=== PATIENT | female | born 1985 | race Hispanic/Latino ===

== ENCOUNTER 2017-12-24 00:40 | Observation (INO) | payer OTHER, SELFPAY ==
[2017-12-24] MEDS ORDERED: Morphine 4 MG/ML VIAL ONE (01:34)
--- NOTE | 2017-12-24 03:13 | HP ---
REASON CHIEF COMPLAINT: Abdominal pain. HISTORY OF PRESENT ILLNESS: Ms. Pedersen is a 32-year-old woman with known gallstones diagnosed 2 yea rs ago during her last . After her , she had a hysterectomy for fibroids with an i ncidental appendectomy due to adhesions. Postoperatively, she had problems with wound dehiscence, wh ich was treated with a wound VAC. She then developed a ventral incisional hernia, which was treated with an open repair with mesh. She has not really had any problems from her gallstones since her pre gnancy, but today had sudden onset of severe right upper quadrant pain and nausea similar to previous episodes. She came in to her local emergency room and was found to have gallstones and wall thicken ing and a positive sonographic Pichardo sign on ultrasound as well as a 9-mm common bile duct. Her AST and ALT were mildly elevated. Her lipase was negative. Her white count was normal. Her pain was n ot able to be controlled and there was no surgical availability at her local hospital so she was [place] sferred here for further management. She states that her pain is somewhat better since receiving preeti n medications, but she is still hurting. PAST MEDICAL HISTORY: None. PAST SURGICAL HISTORY: As previously stated. FAMILY HISTORY: Hypertension, coronary artery disease, and diabetes in her father. Her sister of a massive stroke of unknown etiology. SOCIAL HISTORY: She does not smoke, drink, or use illicit drugs. REVIEW OF SYSTEMS: Ten-system review of systems is negative except per HPI. PHYSICAL EXAMINATION: VITAL SIGNS: Blood pressure 154/100, heart rate 81, 98.7 temperature, respirations 16, 95% saturated on room air. GENERAL: Reveals a pleasant woman, in no acute distress. She is not jaundiced or icteric in appeara nce. She is not flushed or toxic. HEENT: Unremarkable. NECK: Supple without lymphadenopathy or thyroid nodules. HEART: Regular in its rate and rhythm without murmurs, rubs, or gallops. LUNGS: Clear to auscultation bilaterally. She does not exhibit pain with deep inspiration. ABDOMEN: Soft and nondistended. She is moderately tender to palpation in the right upper quadrant, but does not exhibit rigidity, rebound, or guarding. No palpable masses or hernias. Healed midline incision. EXTREMITIES: Warm and well perfused without edema. NEUROLOGIC: No focal deficits. PSYCHIATRIC: Alert, oriented, and appropriate. LABORATORY DATA: White count is normal. Lipase is normal. Bilirubin is normal, but AST and ALT are mildly elevated as is alkaline phosphatase. Electrolytes are unremarkable and test is neg ative. ASSESSMENT: Cholelithiasis, possible cholecystitis or choledocholithiasis. PLAN: I have recommended laparoscopic cholecystectomy. She may need an open cholecystectomy. She h as significant adhesions from her previous surgeries, but we would at least attempt a laparoscopic ap proach. Inherent risks of the surgery include but are not limited to bleeding, infection, risks of a nesthesia, damage to nearby structures including bowel, liver and bile duct, need for other procedure s or ERCP. I have recommended an intraoperative cholangiogram as well due to her dilated bile duct a nd elevated LFTs. Repeat labs for the morning are ordered. All of her questions were answered. She is in agreement with the plan. We will maintain her on antibiotics perioperatively.
[2017-12-24] MEDS ORDERED: Morphine 4 MG/ML VIAL SLOW IVP PRN ×2 (04:01→11:15)
[2017-12-24] MEDS ORDERED: Ondansetron HCl/PF 4 MG/2 ML Vial IVP PRN ×3 (04:01→14:12)
[2017-12-24] MEDS ORDERED: Ondansetron ODT 4 MG TAB SL PRN (04:01)
[2017-12-24] MEDS: Sodium Chloride 0.9% 1,000 ML IV SCH ×3 (04:11→18:17)
[2017-12-24 04:44] VITALS: BMI 41.9
[2017-12-24] MEDS: Morphine 4 MG/ML VIAL SLOW IVP PRN ×4 (05:44→22:27)
[2017-12-24] MEDS ORDERED: Bupivacaine/Epinephrine 0.25% 30 ML VIAL ONE (07:14)
[2017-12-24] MEDS ORDERED: Iothalamate Meglumine 60% 50 ML VIAL FS ONE (07:14)
[2017-12-24 08:26] LABS: #Eosinphils 0.1 thou/uL (0.0-0.7); #Lymphocytes 1.7 thou/uL (1.20-3.40); #Monocytes 0.4 thou/uL (0.11-0.59); #Neutrophils 3.6 thou/uL (1.40-6.50); %Basophils 0.6 % (0.0-1.0); %Eosinophils 2.5 % (0.0-10.0); %Lymphocytes 29.1 % (21.0-51.0); %Monocytes 6.1 % (0.0-10.0); %Neutrophils 61.7 % (42.0-75.0); Hemoglobin 12.4 g/dL (12.0-16.0); Mean Corpuscular HGB CONC 33.9 g/dL (32.0-36.0); Mean Corpuscular Hemoglobin 30.8 pg (27.0-31.0); Mean Corpuscular Volume 90.8 fl (81.0-99.0); Mean Platelet Volume 6.3 fL (7.4-10.4); Platelet Count 258 thou/uL (130-400); RBC Distribution Width 12.1 % (11.5-14.5); Red Blood Cell (RBC) Count 4.04 mill/uL (4.20-5.40); White Blood Cell (WBC) Count 5.8 thou/uL (4.8-10.8)
[2017-12-24 08:51] LABS: ALT (SGPT) 210 U/L (8-55); AST (SGOT) 173 U/L (5-34); Albumin 3.9 g/dL (3.5-5.0); Alkaline Phosphatase 148 U/L (40-150); Anion Gap 10 mmol/L (10-20); BUN (Urea Nitrogen) 10 mg/dL (7.0-18.7); Bilirubin, Total 0.6 mg/dL (0.2-1.2); Calc. Creatinine Clearance 197 mL/min (70-130); Calcium 8.5 mg/dL (7.8-10.44); Carbon Dioxide 24 mmol/L (22-29); Chloride 107 mmol/L (98-107); Estimated GFR-MDRD Greater than 90; Globulin 2.5 g/dL (2.4-3.5); Glucose 97 mg/dL (70-105); Lipase 12 U/L (8-78); Potassium 4.3 mmol/L (3.5-5.1); Protein, Total 6.4 g/dL (6.0-8.3); Sodium 137 mmol/L (136-145)
[2017-12-24] MEDS ORDERED: Acetaminophen 1,000 MG in Premix Bag 1 BAG IVPB PRN (11:08)
--- NOTE | 2017-12-24 12:17 | PDOC.GSPN ---
Surgery Progress Note: Subj - Subjective Patient reports: no new complaints, still having pain (Morphine helps with abdominal pain but hasn't helped with headache) Narrative: LFTs are still mildly elevated not significantly changed from lab values from [place]. Lipase is still normal. Laparoscopic cholecystectomy with IOC is planned for later today. PARQ discussion was held and all of the patient's questions were answered Surgery Progress Note: Obj - Vital signs Vital signs: Vital Signs - Most Recent Temp Pulse Resp BP Pulse Ox 98.7 F 65 16 108/72 95 12/24/17 11:50 12/24/17 11:50 12/24/17 11:50 12/24/17 11:50 12/24/17 11:50 Surgery Progress Note: Results - Labs Result Diagrams: 12/24/17 08:16 12/24/17 08:16 Lab results: Laboratory Results - last 24 hr 12/24/17 12/24/17 08:16 08:16 WBC 5.8 RBC 4.04 L Hgb 12.4 Hct 36.7 MCV 90.8 MCH 30.8 MCHC 33.9 RDW 12.1 Plt Count 258 MPV 6.3 L Neutrophils % 61.7 Lymphocytes % 29.1 Monocytes % 6.1 Eosinophils % 2.5 Basophils % 0.6 Neutrophils # 3.6 Lymphocytes # 1.7 Monocytes # 0.4 Eosinophils # 0.1 Basophils # 0.0 Sodium 137 Potassium 4.3 Chloride 107 Carbon Dioxide 24 Anion Gap 10 BUN 10 Creatinine 0.66 Estimated GFR (MDRD) Greater than 90 Glucose 97 Calcium 8.5 Total Bilirubin 0.6 AST 173 H ALT 210 H Alkaline Phosphatase 148 Serum Total Protein 6.4 Albumin 3.9 Globulin 2.5 Albumin/Globulin Ratio 1.6 Lipase 12
[2017-12-24] MEDS ORDERED: Promethazine 25 MG TAB ONE (13:46)
[2017-12-24] MEDS ORDERED: Promethazine HCl 25 MG/ML VIAL ONE (13:47)
[2017-12-24] MEDS: Meropenem 1 GM in Sodium Chloride 0.9% 100 ML IVPB SCH ×2 (14:09→22:26)
[2017-12-24] MEDS ORDERED: Promethazine HCl 25 MG/ML VIAL SLOW IVP PRN (14:12)
[2017-12-24] MEDS ORDERED: Promethazine HCl 25 MG/ML VIAL IM PRN (14:12)
[2017-12-24] MEDS ORDERED: Fentanyl 100 MCG/2 ML VIAL ONE ×2 (14:21→17:14)
[2017-12-24] MEDS ORDERED: PROPOFOL 200 MG/20 ML VIAL ONE (15:33)
[2017-12-24] MEDS ORDERED: Ketorolac Tromethamine 30 MG/ML VIAL ONE (15:33)
[2017-12-24] MEDS ORDERED: Lidocaine 1% PF 5 ML VIAL ONE (15:33)
[2017-12-24] MEDS ORDERED: Dexamethasone 20 MG/5 ML VIAL ONE (15:33)
[2017-12-24] MEDS ORDERED: Succinylcholine Chloride 20 MG/ML 10 ml SYRINGE FS ONE (15:33)
[2017-12-24] MEDS ORDERED: Ondansetron HCl/PF 4 MG/2 ML Vial ONE (15:33)
[2017-12-24] MEDS ORDERED: Meperidine HCl/PF 25 MG/ML VIAL ONE (17:18)
[2017-12-24] MEDS ORDERED: HYDROcodone/Acetaminophen 7.5/325 mg Tablet PO PRN (18:44)
[2017-12-24] MEDS ORDERED: Clopidogrel Bisulfate 75 MG TAB ONE (19:23)
[2017-12-24] MEDS: HYDROcodone/Acetaminophen 7.5/325 mg Tablet PO PRN (20:09)
--- NOTE | 2017-12-24 21:30 | PDOC.OP ---
Operative Note - Operative Note Operative Note: PROCEDURE: Laparoscopic cholecystectomy SURGEON: Francisco Orourke M.D. DATE OF PROCEDURE: 12/24/2017 PREOPERATIVE DIAGNOSIS: Cholelithiasis and cholecystitis POSTOPERATIVE DIAGNOSIS: Cholelithiasis and cholecystitis HISTORY: Patient with right upper quadrant tenderness and nausea and known gallstones. LFTs were mildly elevated and pain was intractable so a recommendation was made to proceed with laparoscopic cholecystectomy and intraoperative cholangiogram. FINDINGS: Thick-walled gallbladder consistent with chronic cholecystitis. Cystic ducts avulsed from the gallbladder so cholangiogram was unable to be performed. Extensive omental adhesions to midline mesh. PROCEDURE IN DETAIL: After informed consent was obtained and appropriate preoperative antibiotics were administered, the patient was taken to the operating room and placed in the supine position and general endotracheal anesthesia was administered. The stomach was decompressed with an OG tube and the abdomen was prepped and draped in standard sterile fashion. Local anesthesia was infused to the skin and subcutaneous tissues at the right subcostal level. A transverse skin incision was made. The fascia was elevated and a Veress needle was placed into the abdominal cavity without difficulty. Opening pressure was less than 5 but rapidly silvia. The Veress needle was withdrawn and a Nimrod port advanced under direct vision into the abdominal cvity. Carbon dioxide gas easily insufflated to an intra-abdominal pressure of 15, which the patient tolerated well. The abdominal cavity was carefully examined. There was no evidence of Veress needle or of trocar injury, but there were extensive omental adhesions to the upper midline abdomen. Additional dissecting ports were placed in the right lateral abdomen under direct laparoscopic vision and the omental adhesions taken down until the edge of the mesh was identified. The mesh was densely adherent to the omentum and the decision was made to place. Ports outside the margins of the mesh rather than continue to take down the omentum.. Local anesthesia was infused to the skin and subcutaneous tissues at the epigastric and right lower abdominal sites and trocars were placed under direct vision of the laparoscope. The fundus of the gallbladder was grasped and retracted superiorly. The infundibulum was grasped and retracted laterally. The serosa was extremely thickened consistent with chronic cholecystitis and was divided to allow lateral retraction of the infundibulum. During this process some filmy tissues inferior to the gallbladder tore on further dissection in this area at the cystic duct could not be identified and it was felt that this had likely avulsed from the gallbladder. The area of the tissues which is separate from the gallbladder was then carefully examined and 2 structures were identified which it was felt might represent the cystic duct. These were clipped and attention turned to dissection of the gallbladder. The cystic artery was identified clipped and divided. The gallbladder was then dissected free of the gallbladder bed using hook electrocautery. During this process the gallbladder did tear and multiple stones and bile were spilled but were able to be suctioned out. Prior to complete removal of the gallbladder from the gallbladder bed, the area of the cystic duct and artery stumps was examined. The clips were in good position completely across these structures and there was no bleeding and no leakage of bile. The area was again carefully examined and no other structures were noted that were felt to represent the cystic duct. The gallbladder was then placed into an EndoCatch bag and drawn out through the epigastric incision. The epigastric trocar was replaced and the operative site easily irrigated to clear. There was no significant bleeding or spillage of bile. The epigastric trocar was removed and a GraNee needle used to reapproximate the fascia with 0 Vicryl suture in a [id number] manner with excellent technical result. The suture was not tied down however. A trocar was placed back through the epigastric site and a DENNY drain placed through the epigastric trocar and drawn out through the right lateral abdominal sites. The end of the drain was placed to the gallbladder fossa and secured to the skin with nylon suture. The camera was then moved to the epigastric site and the right sided abdominal trochars removed under direct vision and hemostasis verified. Carbon dioxide gas was allowed to desufflate through the epigastric trocar which was then removed. The skin incisions were closed with 4-0 subcuticular Monocryl sutures and Dermabond dressings were placed. The patient was extubated and taken to the recovery room in good condition, with plans for a postoperative MRCP. COMPLICATIONS: Avulsion of the cystic duct from the gallbladder. ESTIMATED BLOOD LOSS: Minimal. SPECIMEN : Gallbladder and contents.
[2017-12-25] MEDS: Morphine 4 MG/ML VIAL SLOW IVP PRN ×5 (04:14→22:20)
[2017-12-25 04:53] LABS: #Lymphocytes 1.2 thou/uL (1.20-3.40); #Monocytes 0.5 thou/uL (0.11-0.59); #Neutrophils 7.9 thou/uL (1.40-6.50); %Basophils 0.1 % (0.0-1.0); %Eosinophils 0.2 % (0.0-10.0); %Lymphocytes 12.9 % (21.0-51.0); %Monocytes 4.7 % (0.0-10.0); %Neutrophils 82.1 % (42.0-75.0); Hemoglobin 12.8 g/dL (12.0-16.0); Mean Corpuscular HGB CONC 33.9 g/dL (32.0-36.0); Mean Corpuscular Hemoglobin 31.4 pg (27.0-31.0); Mean Corpuscular Volume 92.6 fl (81.0-99.0); Platelet Count 294 thou/uL (130-400); Red Blood Cell (RBC) Count 4.09 mill/uL (4.20-5.40); White Blood Cell (WBC) Count 9.6 thou/uL (4.8-10.8)
[2017-12-25 05:08] LABS: ALT (SGPT) 173 U/L (8-55); AST (SGOT) 74 U/L (5-34); Alkaline Phosphatase 127 U/L (40-150); Anion Gap 5 mmol/L (10-20); BUN (Urea Nitrogen) 4 mg/dL (7.0-18.7); Bilirubin, Total 0.4 mg/dL (0.2-1.2); Calc. Creatinine Clearance 203 mL/min (70-130); Carbon Dioxide 29 mmol/L (22-29); Chloride 106 mmol/L (98-107); Estimated GFR-MDRD Greater than 90; Globulin 2.7 g/dL (2.4-3.5); Glucose 133 mg/dL (70-105); Potassium 4.1 mmol/L (3.5-5.1); Protein, Total 6.7 g/dL (6.0-8.3); Sodium 136 mmol/L (136-145)
[2017-12-25] MEDS: HYDROcodone/Acetaminophen 7.5/325 mg Tablet PO PRN (06:04)
[2017-12-25] MEDS: Meropenem 1 GM in Sodium Chloride 0.9% 100 ML IVPB SCH ×2 (06:05→13:11)
[2017-12-25] MEDS: Sodium Chloride 0.9% 1,000 ML IV SCH ×3 (08:07→22:20)
[2017-12-25] MEDS ORDERED: Lorazepam 2 MG/ML VIAL SLOW IVP SCH (10:15)
[2017-12-25] MEDS ORDERED: Ketorolac Tromethamine 30 MG/ML VIAL IVP PRN (10:15)
--- NOTE | 2017-12-25 15:39 | PRG ---
DATE OF SERVICE: 12/25/2017 SUBJECTIVE: Ms. Pedersen is doing okay today. She is still having a lot of pain. She told me today that when she was , she was on massive doses of narcotics and even a fentanyl drip at one poi nt due to pain from her fibroid, so narcotics do not seem to help very much or for very long. OBJECTIVE: She has been afebrile. Her vital signs are good. Her DENNY only had about 70 mL yesterday and is serosanguineous without any bilious staining. AST and ALT are both down a bit to 74 and 173. Her incisions are clean and dry. She is diffusely tender, but ecchymosis is incisional. ASSESSMENT: Status post laparoscopic cholecystectomy with avulsion of the cystic duct from the gallb ladder. This appears to be adequately clipped. There does not seem to be any bile leaking from her DENNY, but we are still awaiting her MRCP to evaluate for bile leak and also for choledocholithiasis sin ce her LFTs were elevated. Her LFTs are coming down somewhat, so this may have been primarily due to her fatty liver and cholecystitis. If her MRCP is normal, then we will plan to remove the DENNY and di scharge her home, but if it is abnormal, then we will get Dr. Watts involved for ERCP and stenting.
--- NOTE | 2017-12-25 18:58 | MRI ---
MRI OF THE ABDOMEN WITHOUT CONTRAST MRCP: Comparison: CT abdomen/pelvis 10-08-16, gallbladder ultrasound 11-22-15. History: Elevated LFTs status post cholecystectomy. Technique: Multiplanar, multisequence MRI images were obtained of the abdomen without contrast. MRCP images were performed. FINDINGS: The gallbladder has been removed and there are stranding changes in the gallbladder fossa from recent surgery. The common bile duct measures 8-9 mm in greatest dimension. No filling defects are seen wit hin the common bile duct. No significant intrahepatic ductal dilatation is seen. The common bile duct tapers to a normal caliber at the antrum of the bladder. No focal liver lesions are seen. There is mild loss of signal in the liver on out of phase images con sistent with diffuse fatty infiltration. The kidneys, adrenal glands, spleen, and pancreas are unrema rkable. IMPRESSION: 1. Status post cholecystectomy with mild enlargement of the common bile duct. There is likely reservo ir effect from cholecystectomy. 2. Mild fatty infiltration of the liver. POS: [facility]
[2017-12-25] MEDS ORDERED: Famotidine/PF 20 mg/2ml Vial SLOW IVP SCH (21:00)
[2017-12-25] MEDS: Famotidine 40 MG/4 ML VIAL SLOW IVP SCH (22:19)
[2017-12-25] MEDS: MEROPENEM 1 GM/50 ML 1 GM in Premix Bag 1 BAG IVPB SCH (22:20)
[2017-12-26] MEDS: MEROPENEM 1 GM/50 ML 1 GM in Premix Bag 1 BAG IVPB SCH (05:52)
[2017-12-26] MEDS: Morphine 4 MG/ML VIAL SLOW IVP PRN (08:30)
[2017-12-26] MEDS: Famotidine 40 MG/4 ML VIAL SLOW IVP SCH (08:30)
--- NOTE | 2017-12-26 11:09 | NM ---
HIDA SCAN: Comparison: MRCP, 12-25-17; CT abdomen/pelvis 10-08-16. History: Status post cholecystectomy with right upper quadrant abdominal pain. Evaluate for leak. Technique: A hepatobiliary scan was performed after administration of 4.9 mCi Technetium 99M Mebrofen in. FINDINGS: Prompt uptake of radiopharmaceutical by the liver is seen. Biliary activity is seen within 10 minutes . Bowel activity is seen within 15 minutes. No accumulation of radiopharmaceutical is seen outside of the biliary tree or bowel to suggest a leak. The gallbladder is not visualized as it has been remove d. IMPRESSION: No evidence of bowel leak. POS: [facility]
[2017-12-26] MEDS: HYDROcodone/Acetaminophen 7.5/325 mg Tablet PO PRN (11:49)
[2017-12-26 12:13] VITALS: BP 147/96; TEMP 99.2
== END 2017-12-26 14:01 | disposition home or self-care (01) ==
LOC: ERS 00:40 → SURG B 02:33
PROVIDERS: ADMIT Surgery; ATTEND Surgery
PROC: 0FT44ZZ Resection of Gallbladder, Percutaneous Endoscopic Approach (ICD-10-PCS; principal; 2017-12-26)
DX: K80.10 Calculus of gallbladder with chronic cholecystitis without obstruction (principal); Z88.8 Allergy status to other drugs, medicaments and biological substances; Z91.041 Radiographic dye allergy status; Z90.49 Acquired absence of other specified parts of digestive tract; Z90.710 Acquired absence of both cervix and uterus; Z90.79 Acquired absence of other genital organ(s); Z90.89 Acquired absence of other organs; Z98.890 Other specified postprocedural states
CPT/HCPCS: 36415; 74181; 78226; 80053; 83690; 85025; 88304; 96361; 96365; 96366; 96374; 96375; 96376; A9537; G0378; J0131; J1100; J1885; J2001; J2060; J2175; J2185; J2270; J2405; J2550; J2704; J3010; J7050; Q9961; S0028

== ENCOUNTER 2018-06-19 10:37 | Emergency (ER) | payer SELFPAY | END 2018-06-19 12:18 | disposition home or self-care (01) | LOC: ERS 10:37 | DX: J06.9 Acute upper respiratory infection, unspecified (principal); F32.9 Major depressive disorder, single episode, unspecified | CPT/HCPCS: 87804; 99283 ==

== ENCOUNTER 2018-12-25 16:53 | Emergency (ER) | payer SELFPAY ==
[2018-12-25 17:52] LABS: #Eosinphils 0.2 thou/uL (0.0-0.7); #Lymphocytes 2.8 thou/uL (1.20-3.40); #Monocytes 0.4 thou/uL (0.11-0.59); %Basophils 0.2 % (0.0-1.0); %Eosinophils 1.5 % (0.0-10.0); %Lymphocytes 26.4 % (21.0-51.0); %Monocytes 4.3 % (0.0-10.0); %Neutrophils 67.6 % (42.0-75.0); Mean Corpuscular HGB CONC 33.9 g/dL (32.0-36.0); Mean Corpuscular Hemoglobin 30.4 pg (27.0-31.0); Mean Corpuscular Volume 89.7 fL (78.0-98.0); Mean Platelet Volume 7.4 fL (7.4-10.4); Platelet Count 325 thou/uL (130-400); RBC Distribution Width 11.7 % (11.5-14.5); Red Blood Cell (RBC) Count 4.29 mill/uL (4.20-5.40); White Blood Cell (WBC) Count 10.4 thou/uL (4.8-10.8)
--- NOTE | 2018-12-25 18:04 | RAD ---
EXAM: Chest PA and lateral: HISTORY: Chest pain, headache, upper back pain, history of hypertension COMPARISON: 11/17/2012 FINDINGS: Monitor leads overlie the chest. Heart size is normal. The lungs are clear. No confluent pneumonia, overt edema, pleural effusion, or other acute process. IMPRESSION: No significant acute intrathoracic disease.
[2018-12-25 18:16] LABS: ALT (SGPT) 40 U/L (8-55); AST (SGOT) 27 U/L (5-34); Albumin 4.5 g/dL (3.5-5.0); Alkaline Phosphatase 130 U/L (40-150); Anion Gap 15 mmol/L (10-20); BUN (Urea Nitrogen) 13 mg/dL (7.0-18.7); Bilirubin, Total 0.5 mg/dL (0.2-1.2); CK (CPK) 90 U/L (29-168); Calc. Creatinine Clearance 0 mL/min (70-130); Calcium 9.9 mg/dL (7.8-10.44); Carbon Dioxide 29 mmol/L (22-29); Chloride 98 mmol/L (98-107); Estimated GFR-MDRD Greater than 90; Globulin 3.3 g/dL (2.4-3.5); Glucose 101 mg/dL (70-105); Potassium 3.2 mmol/L (3.5-5.1); Protein, Total 7.8 g/dL (6.0-8.3); Sodium 139 mmol/L (136-145)
== END 2018-12-25 19:14 | disposition home or self-care (01) ==
LOC: ERS 16:53
DX: R07.9 Chest pain, unspecified (principal); R51 Headache; E11.9 Type 2 diabetes mellitus without complications; I10 Essential (primary) hypertension; E78.5 Hyperlipidemia, unspecified; E03.9 Hypothyroidism, unspecified; F41.9 Anxiety disorder, unspecified
CPT/HCPCS: 71046; 80053; 82550; 84484; 85025; 93005; 94760

== ENCOUNTER 2020-08-01 14:31 | Emergency (ER) | payer SELFPAY ==
[2020-08-01 21:46] LABS: SARS-CoV-2 MS2 Positive; SARS-CoV-2 N Gene Negative; SARS-CoV-2 S Gene Negative; SARS-CoV-2 by NAA Not Detected (NotDetected); SARS-CoV-2 orf1ab Negative
== END 2020-08-01 15:17 | disposition home or self-care (01) ==
LOC: ERS 14:31
DX: R05 Cough (principal); Z20.828 Contact with and (suspected) exposure to other viral communicable diseases; I10 Essential (primary) hypertension; E78.5 Hyperlipidemia, unspecified; E11.9 Type 2 diabetes mellitus without complications; E03.9 Hypothyroidism, unspecified; F41.9 Anxiety disorder, unspecified; Z79.899 Other long term (current) drug therapy
CPT/HCPCS: 87635; 99283; U0003

== ENCOUNTER 2021-01-03 00:18 | Observation (INO) | payer MEDICAID, SELFPAY ==
[2021-01-03 00:53] LABS: Actual Bicarbonate (HCO3v) 29 mEq/L (22-28); Analyzer IN Cardio ER; Base Excess 3.4 mEq/L (-2.0 to +3.0); pH (venous) 7.41 (7.32-7.43)
[2021-01-03 00:54] LABS: Calcium, Ionized (venous) 1.12 mmol/L (1.16-1.32); Chloride (VBG) 91 mmol/L (98-106); Hemoglobin (Hb) 15.3 g/dL (11.7-15.5); Potassium (VBG) 3.07 mmol/L (3.70-5.30); Sodium 134.2 mmol/L (133-146)
[2021-01-03 01:09] LABS: ALT (SGPT) 67 U/L (8-55); AST (SGOT) 45 U/L (5-34); Albumin 4.7 g/dL (3.5-5.0); Alkaline Phosphatase 221 U/L (40-110); Anion Gap 16 mmol/L (10-20); BUN (Urea Nitrogen) 7 mg/dL (7.0-18.7); Bilirubin, Total 0.7 mg/dL (0.2-1.2); Calc. Creatinine Clearance 0 mL/min (70-130); Calcium 10.1 mg/dL (7.8-10.44); Carbon Dioxide 29 mmol/L (22-29); Chloride 91 mmol/L (98-107); Globulin 3.1 g/dL (2.4-3.5); Glucose 450 mg/dL (70-105); Potassium 3.2 mmol/L (3.5-5.1); Protein, Total 7.8 g/dL (6.0-8.3); Sodium 133 mmol/L (136-145)
[2021-01-03] MEDS ORDERED: NS 0.9% w/ 20 MEQ KCL 1,000 ML ONE (01:16)
[2021-01-03] MEDS ORDERED: Insulin Regular 300 UNITS/3 ML VIAL ONE (02:11)
[2021-01-03] MEDS ORDERED: Metoclopramide HCl 10 MG/2 ML VIAL ONE (02:48)
[2021-01-03] MEDS ORDERED: Metoclopramide 10 MG/10 ML UDCUP ONE (02:48)
[2021-01-03 02:51] LABS: Phosphorus 1.9 mg/dL (2.3-4.7)
[2021-01-03] MEDS ORDERED: Dextrose 50% Abboject 50 ML SYRINGE SLOW IVP PRN (03:18)
[2021-01-03] MEDS ORDERED: Dextrose 5% in Water 1,000 ML IV PRN (03:18)
[2021-01-03] MEDS ORDERED: Potassium Chloride 20 MEQ TAB PO SCH ×2 (03:30→05:30)
[2021-01-03] MEDS ORDERED: Ondansetron PF 4 MG/2 ML Vial IVP PRN (03:45)
[2021-01-03] MEDS ORDERED: Ondansetron ODT 4 MG TAB PO PRN (03:45)
[2021-01-03] MEDS ORDERED: Bisacodyl 5 MG TAB PO PRN (03:45)
[2021-01-03] MEDS ORDERED: Senokot S 8.6-50 MG TAB PO PRN (03:45)
[2021-01-03] MEDS ORDERED: Potassium Chloride 20 MEQ in Premix Bag 1 BAG IVPB SCH (04:00)
[2021-01-03 04:52] VITALS: BMI 42.8
[2021-01-03] MEDS: HumaLOG 300 UNITS/3 ML VIAL SC PRN ×3 (06:42→17:15)
[2021-01-03 07:29] LABS: Bilirubin Negative (Negative); Blood, Urine Negative (Negative); Clarity Clear (Clear); Glucose, Urine (Dipstick) Greater than 1000 mg/dL (Negative); Ketone, Urine 40 mg/dL (Negative); Leukocyte Negative Leu/uL (Negative); Nitrite Negative (Negative); Protein, Urine (Dipstick) 20 mg/dL (Neg-Trace); RBC/HPF 0-3 HPF (0-3); Specific Gravity, Urine 1.042 (1.002-1.036); Squamous Epithelial 0-3 HPF (0-3); Urobilinogen Normal mg/dL (Less than 2); pH, Urine 5.5 (5.0-9.0)
[2021-01-03 07:30] LABS: Bacteria/HPF 1+ HPF (None Seen)
[2021-01-03 08:04] LABS: #Eosinphils 0.2 thou/uL (0.0-0.7); #Lymphocytes 2.4 thou/uL (1.20-3.40); #Monocytes 0.3 thou/uL (0.11-0.59); #Neutrophils 3.4 thou/uL (1.40-6.50); %Basophils 0.8 % (0.0-1.0); %Eosinophils 2.5 % (0.0-10.0); %Lymphocytes 38.1 % (21.0-51.0); %Monocytes 4.4 % (0.0-10.0); %Neutrophils 54.1 % (42.0-75.0); Hemoglobin 12.8 g/dL (12.0-16.0); Mean Corpuscular HGB CONC 34.4 g/dL (32.0-36.0); Mean Corpuscular Hemoglobin 31.1 pg (27.0-31.0); Mean Corpuscular Volume 90.4 fL (78.0-98.0); Mean Platelet Volume 7.8 fL (7.4-10.4); Platelet Count 246 thou/uL (130-400); RBC Distribution Width 11.6 % (11.5-14.5); Red Blood Cell (RBC) Count 4.11 mill/uL (4.20-5.40); White Blood Cell (WBC) Count 6.2 thou/uL (4.8-10.8)
[2021-01-03 08:16] LABS: Anion Gap 12 mmol/L (10-20); BUN (Urea Nitrogen) 5 mg/dL (7.0-18.7); Calc. Creatinine Clearance 154 mL/min (70-130); Calcium 8.7 mg/dL (7.8-10.44); Carbon Dioxide 29 mmol/L (22-29); Cardiac Risk 9.3 (Less than 4.5); Chloride 97 mmol/L (98-107); Cholesterol 195 mg/dl (< 200 Desired); Glucose 373 mg/dL (70-105); HDL Cholesterol 21 mg/dL (>60 Neg Risk); Potassium 3.4 mmol/L (3.5-5.1); Sodium 135 mmol/L (136-145); Triglycerides 451 mg/dL (Less than 150)
[2021-01-03 08:34] LABS: Hemoglobin A1c 11.8 % (4.0-6.0)
[2021-01-03 08:45] LABS: HBCM Index 0.07 S/CO (0-0.79); HBSAg Index 0.17 S/CO (0-0.99); Hep A IgM AB Non-Reactive (NonReactive); Hep A IgM S/CO 0.13 S/CO (0-0.79); Hep B Surf Ag Non-Reactive S/CO (NonReactive); Hep C IgG Ab Non-Reactive (NonReactive); Hep C Index 0.07 S/CO (0-0.79); Hepatitis B Core IgM Abs Non-Reactive (NonReactive)
[2021-01-03] MEDS ORDERED: Lantus 1000 UNITS/10 ML VIAL SC SCH (09:30)
[2021-01-03] MEDS: NS 0.9% w/ 20 MEQ KCL 1,000 ML/1,000 ML BAG IV SCH ×2 (10:29→22:12)
[2021-01-03] MEDS: Potassium Chloride 10 MEQ TAB PO SCH (10:29)
[2021-01-03 11:39] LABS: SARS-CoV-2 NAA Rapid Test Not Detected (NotDetected)
[2021-01-03] MEDS: Metoclopramide 10 MG/10 ML UDCUP PO SCH ×3 (11:42→22:06)
[2021-01-03] MEDS ORDERED: Amitriptyline HCl 25 MG TAB PO SCH (21:00)
[2021-01-03] MEDS: Mirtazapine 30 MG Soltab PO SCH (22:07)
[2021-01-04] MEDS: Insulin Regular 300 UNITS/3 ML VIAL SC PRN ×2 (00:22→21:01)
[2021-01-04 04:48] LABS: #Eosinphils 0.2 thou/uL (0.0-0.7); #Lymphocytes 2.6 thou/uL (1.20-3.40); #Monocytes 0.3 thou/uL (0.11-0.59); #Neutrophils 2.6 thou/uL (1.40-6.50); %Basophils 0.2 % (0.0-1.0); %Lymphocytes 46.3 % (21.0-51.0); %Monocytes 5.2 % (0.0-10.0); %Neutrophils 45.3 % (42.0-75.0); Hemoglobin 12.3 g/dL (12.0-16.0); Mean Corpuscular HGB CONC 32.7 g/dL (32.0-36.0); Mean Corpuscular Hemoglobin 30.3 pg (27.0-31.0); Mean Corpuscular Volume 92.6 fL (78.0-98.0); Mean Platelet Volume 8.4 fL (7.4-10.4); Platelet Count 193 thou/uL (130-400); RBC Distribution Width 11.8 % (11.5-14.5); Red Blood Cell (RBC) Count 4.05 mill/uL (4.20-5.40); White Blood Cell (WBC) Count 5.7 thou/uL (4.8-10.8)
[2021-01-04 05:11] LABS: Anion Gap 11 mmol/L (10-20); BUN (Urea Nitrogen) 8 mg/dL (7.0-18.7); Calc. Creatinine Clearance 161 mL/min (70-130); Calcium 8.6 mg/dL (7.8-10.44); Carbon Dioxide 25 mmol/L (22-29); Chloride 104 mmol/L (98-107); Glucose 455 mg/dL (70-105); Potassium 4.3 mmol/L (3.5-5.1); Sodium 136 mmol/L (136-145)
[2021-01-04] MEDS: HumaLOG 300 UNITS/3 ML VIAL SC PRN ×3 (06:28→17:09)
[2021-01-04] MEDS: Levothyroxine Sodium 100 MCG TAB PO SCH (06:33)
[2021-01-04] MEDS ORDERED: Lantus 1000 UNITS/10 ML VIAL SC SCH ×2 (09:00→21:00)
[2021-01-04] MEDS: NS 0.9% w/ 20 MEQ KCL 1,000 ML/1,000 ML BAG IV SCH ×3 (09:18→23:50)
[2021-01-04] MEDS: Polyethylene Glycol 3350 17 GM Packet PO SCH (09:20)
[2021-01-04] MEDS: Metoclopramide 10 MG/10 ML UDCUP PO SCH ×4 (09:20→20:52)
[2021-01-04] MEDS: Potassium Chloride 10 MEQ TAB PO SCH (09:20)
[2021-01-04] MEDS: Pantoprazole 40 MG GRANULES PACKET PO SCH (09:21)
[2021-01-04] MEDS: Venlafaxine HCl XR 75 MG CAP PO SCH (09:21)
[2021-01-04] MEDS: Senokot S 8.6-50 MG TAB PO SCH ×2 (09:21→20:53)
[2021-01-04] MEDS: Lantus 1000 UNITS/10 ML VIAL SC SCH (09:22)
[2021-01-04] MEDS: Acetaminophen 500 MG TAB PO PRN ×2 (11:59→17:09)
[2021-01-04] MEDS: metFORMIN 500 MG TAB PO SCH (17:09)
[2021-01-04] MEDS: Mirtazapine 30 MG Soltab PO SCH (20:53)
[2021-01-04] MEDS ORDERED: Zolpidem Tartrate 5 MG TAB PO SCH (23:00)
[2021-01-05] MEDS: Levothyroxine Sodium 100 MCG TAB PO SCH (06:09)
[2021-01-05] MEDS: Acetaminophen 500 MG TAB PO PRN ×2 (06:09→15:00)
[2021-01-05] MEDS: HumaLOG 300 UNITS/3 ML VIAL SC PRN ×2 (06:12→12:12)
[2021-01-05 06:58] LABS: Anion Gap 11 mmol/L (10-20); BUN (Urea Nitrogen) 6 mg/dL (7.0-18.7); Calc. Creatinine Clearance 196 mL/min (70-130); Calcium 7.9 mg/dL (7.8-10.44); Carbon Dioxide 23 mmol/L (22-29); Chloride 107 mmol/L (98-107); Glucose 283 mg/dL (70-105); Sodium 137 mmol/L (136-145)
[2021-01-05] MEDS: Metoclopramide 10 MG/10 ML UDCUP PO SCH ×2 (08:35→12:08)
[2021-01-05] MEDS: Senokot S 8.6-50 MG TAB PO SCH (08:35)
[2021-01-05] MEDS: Polyethylene Glycol 3350 17 GM Packet PO SCH (08:36)
[2021-01-05] MEDS: Potassium Chloride 10 MEQ TAB PO SCH (08:36)
[2021-01-05] MEDS: Pantoprazole 40 MG GRANULES PACKET PO SCH (08:36)
[2021-01-05] MEDS: metFORMIN 500 MG TAB PO SCH (08:36)
[2021-01-05] MEDS: Venlafaxine HCl XR 75 MG CAP PO SCH (08:36)
[2021-01-05] MEDS: Lantus 1000 UNITS/10 ML VIAL SC SCH (08:37)
[2021-01-05] MEDS: NS 0.9% w/ 20 MEQ KCL 1,000 ML/1,000 ML BAG IV SCH (11:14)
[2021-01-05 15:05] VITALS: BP 138/87; TEMP 98.1
[2021-01-05] MEDS ORDERED: Zolpidem Tartrate 5 MG TAB PO SCH (21:00)
== END 2021-01-05 16:23 | disposition home or self-care (01) ==
LOC: ERS 00:18 → 2NO 02:02 → T4-A 01-04 16:29
PROVIDERS: ADMIT Internal Medicine; ATTEND Family Medicine
DX: E11.65 Type 2 diabetes mellitus with hyperglycemia (principal); E11.00 Type 2 diabetes mellitus with hyperosmolarity without nonketotic hyperglycemic-hyperosmolar coma (NKHHC); E86.0 Dehydration; E87.6 Hypokalemia; R74.01 Elevation of levels of liver transaminase levels; I10 Essential (primary) hypertension; E78.5 Hyperlipidemia, unspecified; K21.9 Gastro-esophageal reflux disease without esophagitis; E03.9 Hypothyroidism, unspecified; K76.0 Fatty (change of) liver, not elsewhere classified; E66.9 Obesity, unspecified; Z68.41 Body mass index [BMI] 40.0-44.9, adult; Z79.84 Long term (current) use of oral hypoglycemic drugs; Z79.899 Other long term (current) drug therapy; Z88.8 Allergy status to other drugs, medicaments and biological substances; Z91.041 Radiographic dye allergy status; Z20.822 Contact with and (suspected) exposure to COVID-19
CPT/HCPCS: 0240U; 36415; 36416; 76705; 80048; 80053; 80061; 80074; 81001; 82010; 82805; 82977; 83036; 83605; 83735; 84100; 84443; 85025; 96365; 96366; 96375; G0378; J1815; J2765; J3480

== ENCOUNTER 2022-01-18 18:13 | Inpatient (IN) | payer BC, SELFPAY ==
[2022-01-18 19:01] LABS: #Basophils 0.1 thou/uL (0.0-0.2); #Eosinphils 0.3 thou/uL (0.0-0.7); #Lymphocytes 2.9 thou/uL (1.20-3.40); #Monocytes 0.5 thou/uL (0.11-0.59); #Neutrophils 9.8 thou/uL (1.40-6.50); %Basophils 0.5 % (0.0-1.0); %Eosinophils 2.2 % (0.0-10.0); %Lymphocytes 21.2 % (21.0-51.0); %Monocytes 3.7 % (0.0-10.0); %Neutrophils 72.4 % (42.0-75.0); Hemoglobin 13.9 g/dL (12.0-16.0); Mean Corpuscular HGB CONC 34.4 g/dL (32.0-36.0); Mean Corpuscular Volume 90.2 fL (78.0-98.0); Mean Platelet Volume 6.9 fL (7.4-10.4); Platelet Count 357 thou/uL (130-400); RBC Distribution Width 12.7 % (11.5-14.5); Red Blood Cell (RBC) Count 4.47 mill/uL (4.20-5.40); White Blood Cell (WBC) Count 13.5 thou/uL (4.8-10.8)
[2022-01-18 19:18] LABS: ALT (SGPT) 81 U/L (8-55); AST (SGOT) 40 U/L (5-34); Alkaline Phosphatase 138 U/L (40-110); Anion Gap 15 mmol/L (10-20); BUN (Urea Nitrogen) 6 mg/dL (7.0-18.7); Bilirubin, Total 0.4 mg/dL (0.2-1.2); Calc. Creatinine Clearance 0 mL/min (70-130); Calcium 8.7 mg/dL (7.8-10.44); Carbon Dioxide 22 mmol/L (22-29); Chloride 100 mmol/L (98-107); Globulin 2.7 g/dL (2.4-3.5); Glucose 174 mg/dL (70-105); Lipase 15 U/L (8-78); Potassium 3.1 mmol/L (3.5-5.1); Protein, Total 6.7 g/dL (6.0-8.3); Sodium 134 mmol/L (136-145)
[2022-01-18 19:40] LABS: CKMB 0.7 ng/mL (0-6.6)
[2022-01-18] MEDS ORDERED: Bisacodyl 10 MG SUPP PR PRN (20:49)
[2022-01-18] MEDS ORDERED: Zolpidem Tartrate 5 MG TAB PO PRN (20:49)
[2022-01-18] MEDS ORDERED: Dextrose 5% in Water 1,000 ML IV PRN (20:49)
[2022-01-18] MEDS ORDERED: Dextrose 50% Abboject 50 ML SYRINGE SLOW IVP PRN (20:49)
[2022-01-18] MEDS ORDERED: HumaLOG 300 UNITS/3 ML VIAL SC PRN ×2 (20:49)
[2022-01-18] MEDS ORDERED: hydrALAZINE 20 MG/ML VIAL SLOW IVP PRN (20:51)
[2022-01-18] MEDS ORDERED: Enoxaparin Sodium 100 MG/ML SYRINGE ONE ×2 (20:56→20:59)
[2022-01-18] MEDS ORDERED: Acetaminophen 500 MG TAB ONE (21:00)
[2022-01-18] MEDS ORDERED: Potassium Chloride 20 MEQ TAB PO SCH (21:00)
[2022-01-18] MEDS ORDERED: Furosemide 40 MG/4 ML VIAL SLOW IVP SCH (21:00)
[2022-01-18] MEDS ORDERED: Clopidogrel Bisulfate 75 MG TAB PO SCH (21:15)
[2022-01-18] MEDS ORDERED: Aspirin 81 mg Enteric Coated Tablet PO SCH (21:15)
[2022-01-18] MEDS ORDERED: Morphine 4 MG/ML VIAL ONE (21:34)
[2022-01-18 23:08] VITALS: BMI 42.2
[2022-01-18] MEDS: Amitriptyline HCl 25 MG TAB PO SCH (23:37)
[2022-01-18] MEDS: cefTRIAXone\\ROCEPHIN 1 GM in Sodium Chloride 0.9% 100 ML IVPB SCH (23:38)
[2022-01-18] MEDS: metFORMIN 500 MG TAB PO SCH (23:39)
[2022-01-18] MEDS: Mirtazapine 30 MG Soltab PO SCH (23:39)
[2022-01-18] MEDS: HumuLIN 70/30 (300 UNITS/3 ML VIAL) SC SCH (23:39)
[2022-01-19 00:20] LABS: SARS-CoV-2 NAA Rapid Test Not Detected (NotDetected)
[2022-01-19] MEDS: Morphine 2 MG/ML VIAL SLOW IVP PRN ×2 (04:12→08:19)
[2022-01-19 05:23] LABS: Troponin I 0.033 ng/mL (< 0.028)
[2022-01-19 05:24] LABS: ALT (SGPT) 65 U/L (8-55); AST (SGOT) 31 U/L (5-34); Albumin 3.7 g/dL (3.5-5.0); Alkaline Phosphatase 125 U/L (40-110); Anion Gap 14 mmol/L (10-20); BUN (Urea Nitrogen) 5 mg/dL (7.0-18.7); Bilirubin, Total 0.5 mg/dL (0.2-1.2); Calc. Creatinine Clearance 194 mL/min (70-130); Calcium 8.1 mg/dL (7.8-10.44); Carbon Dioxide 24 mmol/L (22-29); Chloride 101 mmol/L (98-107); Globulin 2.7 g/dL (2.4-3.5); Glucose 117 mg/dL (70-105); Protein, Total 6.4 g/dL (6.0-8.3); Sodium 136 mmol/L (136-145)
[2022-01-19 05:31] LABS: #Eosinphils 0.3 thou/uL (0.0-0.7); #Lymphocytes 2.5 thou/uL (1.20-3.40); #Monocytes 0.5 thou/uL (0.11-0.59); #Neutrophils 6.7 thou/uL (1.40-6.50); %Basophils 0.4 % (0.0-1.0); %Eosinophils 2.6 % (0.0-10.0); %Lymphocytes 25.4 % (21.0-51.0); %Monocytes 4.5 % (0.0-10.0); %Neutrophils 67.1 % (42.0-75.0); Hemoglobin 12.8 g/dL (12.0-16.0); Mean Corpuscular HGB CONC 33.5 g/dL (32.0-36.0); Mean Corpuscular Hemoglobin 30.5 pg (27.0-31.0); Mean Corpuscular Volume 90.8 fL (78.0-98.0); Mean Platelet Volume 6.6 fL (7.4-10.4); Platelet Count 273 thou/uL (130-400); RBC Distribution Width 12.8 % (11.5-14.5)
[2022-01-19] MEDS: Levothyroxine Sodium 88 MCG TAB PO SCH (05:36)
[2022-01-19] MEDS ORDERED: Levothyroxine Sodium 100 MCG TAB PO SCH (06:00)
[2022-01-19] MEDS ORDERED: Potassium Chloride 20 MEQ TAB PO SCH (08:15)
[2022-01-19] MEDS: Furosemide 40 MG/4 ML VIAL SLOW IVP SCH (08:19)
[2022-01-19] MEDS ORDERED: Hydrochlorothiazide 25 MG TAB PO SCH (09:00)
[2022-01-19] MEDS: Clopidogrel Bisulfate 75 MG TAB PO SCH (09:13)
[2022-01-19] MEDS: Losartan 25 MG TAB PO SCH (09:13)
[2022-01-19] MEDS: Venlafaxine HCl XR 150 MG CAP PO SCH (09:14)
[2022-01-19] MEDS: Aspirin 81 mg Enteric Coated Tablet PO SCH (09:15)
[2022-01-19] MEDS: Cyclobenzaprine 10 MG TAB PO SCH (09:15)
[2022-01-19] MEDS: Enoxaparin Sodium 40 MG/0.4 ML SYRINGE SC SCH (09:16)
[2022-01-19] MEDS: Potassium Chloride 20 MEQ TAB PO SCH ×2 (09:16→19:07)
[2022-01-19] MEDS: HumuLIN 70/30 (300 UNITS/3 ML VIAL) SC SCH ×2 (09:17→20:49)
[2022-01-19] MEDS: metFORMIN 500 MG TAB PO SCH ×2 (09:17→20:50)
[2022-01-19] MEDS: Nitroglycerin 0.4 MG TAB (25 Tab Bottle) SL PRN ×2 (12:17→22:56)
[2022-01-19] MEDS: Acetaminophen 325 MG TAB PO PRN ×2 (12:25→22:55)
[2022-01-19 13:34] LABS: Anion Gap 15 mmol/L (10-20); BUN (Urea Nitrogen) 5 mg/dL (7.0-18.7); Calc. Creatinine Clearance 180 mL/min (70-130); Calcium 8.8 mg/dL (7.8-10.44); Carbon Dioxide 30 mmol/L (22-29); Chloride 96 mmol/L (98-107); Glucose 103 mg/dL (70-105); Potassium 3.6 mmol/L (3.5-5.1); Sodium 137 mmol/L (136-145)
[2022-01-19] MEDS ORDERED: Lidocaine 2% Viscous Solution 20 ML, Aluminum & Magnesium Hydroxide 30 ML, Donnatal Eli... SSW SCH (14:15)
[2022-01-19] MEDS ORDERED: Ondansetron PF 4 MG/2 ML Vial IVP PRN (17:19)
[2022-01-19] MEDS: Mirtazapine 30 MG Soltab PO SCH (20:50)
[2022-01-19] MEDS: Amitriptyline HCl 25 MG TAB PO SCH (20:51)
[2022-01-19] MEDS: HYDROcodone/Acetaminophen 5/325 mg Tablet PO PRN (20:53)
[2022-01-19] MEDS: cefTRIAXone\\ROCEPHIN 1 GM in Sodium Chloride 0.9% 100 ML IVPB SCH (20:53)
[2022-01-20] MEDS: Morphine 2 MG/ML VIAL SLOW IVP PRN (04:05)
[2022-01-20] MEDS: Levothyroxine Sodium 88 MCG TAB PO SCH (06:18)
[2022-01-20] MEDS: HYDROcodone/Acetaminophen 5/325 mg Tablet PO PRN (08:34)
[2022-01-20] MEDS: Venlafaxine HCl XR 150 MG CAP PO SCH (08:36)
[2022-01-20] MEDS: Clopidogrel Bisulfate 75 MG TAB PO SCH (08:37)
[2022-01-20] MEDS: Potassium Chloride 20 MEQ TAB PO SCH (08:37)
[2022-01-20] MEDS: Aspirin 81 mg Enteric Coated Tablet PO SCH (08:37)
[2022-01-20] MEDS: Enoxaparin Sodium 40 MG/0.4 ML SYRINGE SC SCH (08:38)
[2022-01-20] MEDS: HumuLIN 70/30 (300 UNITS/3 ML VIAL) SC SCH (08:39)
[2022-01-20] MEDS: metFORMIN 500 MG TAB PO SCH (08:40)
[2022-01-20] MEDS: Cyclobenzaprine 10 MG TAB PO SCH (08:40)
[2022-01-20] MEDS: Losartan 25 MG TAB PO SCH (08:40)
[2022-01-20] MEDS: Furosemide 40 MG/4 ML VIAL SLOW IVP SCH (08:45)
[2022-01-20 12:34] VITALS: BP 112/60; TEMP 97.6
== END 2022-01-20 14:31 | disposition home or self-care (01) | DRG 193 ==
LOC: ERS 18:13 → 2SW 21:04 → OBSVTOIN 01-19 10:25
PROVIDERS: ADMIT Internal Medicine; ATTEND Internal Medicine
DX: J18.9 Pneumonia, unspecified organism (principal); J96.01 Acute respiratory failure with hypoxia; I5A Non-ischemic myocardial injury (non-traumatic); Z68.41 Body mass index [BMI] 40.0-44.9, adult; E11.9 Type 2 diabetes mellitus without complications; E78.5 Hyperlipidemia, unspecified; E03.9 Hypothyroidism, unspecified; F41.9 Anxiety disorder, unspecified; E87.6 Hypokalemia; R79.89 Other specified abnormal findings of blood chemistry; I11.0 Hypertensive heart disease with heart failure; I50.9 Heart failure, unspecified; F32.A Depression, unspecified; K21.9 Gastro-esophageal reflux disease without esophagitis; K76.0 Fatty (change of) liver, not elsewhere classified; G47.9 Sleep disorder, unspecified; Z20.822 Contact with and (suspected) exposure to COVID-19; E66.01 Morbid (severe) obesity due to excess calories; Z90.49 Acquired absence of other specified parts of digestive tract; Z90.710 Acquired absence of both cervix and uterus; Z98.890 Other specified postprocedural states; Z82.3 Family history of stroke; Z79.899 Other long term (current) drug therapy; Z72.89 Other problems related to lifestyle; Z88.1 Allergy status to other antibiotic agents; Z79.890 Hormone replacement therapy; Z88.8 Allergy status to other drugs, medicaments and biological substances; Z79.4 Long term (current) use of insulin; Z79.84 Long term (current) use of oral hypoglycemic drugs; Z82.49 Family history of ischemic heart disease and other diseases of the circulatory system
CPT/HCPCS: 36415; 36416; 70450; 71045; 71046; 71250; 78451; 80053; 82553; 83690; 83880; 84145; 84443; 84484; 85025; 85379; 87040; 93005; 93306; 94760; 96366; 96372; 96374; 96375; 96376; A9540; G0378; J0696; J1650; J1815; J1940; J2270; J2405; J3490; U0002

== ENCOUNTER 2022-02-25 13:30 | Emergency (ER) | payer BC ==
[2022-02-25 14:16] LABS: #Eosinphils 0.1 thou/uL (0.0-0.7); #Lymphocytes 1.4 thou/uL (1.20-3.40); #Monocytes 0.4 thou/uL (0.11-0.59); #Neutrophils 3.9 thou/uL (1.40-6.50); %Basophils 0.5 % (0.0-1.0); %Lymphocytes 23.9 % (21.0-51.0); %Monocytes 6.8 % (0.0-10.0); %Neutrophils 66.9 % (42.0-75.0); Mean Corpuscular HGB CONC 33.1 g/dL (32.0-36.0); Mean Corpuscular Hemoglobin 30.9 pg (27.0-31.0); Mean Corpuscular Volume 93.3 fL (78.0-98.0); Mean Platelet Volume 6.5 fL (7.4-10.4); Platelet Count 250 thou/uL (130-400); RBC Distribution Width 12.8 % (11.5-14.5); Red Blood Cell (RBC) Count 4.52 mill/uL (4.20-5.40); White Blood Cell (WBC) Count 5.8 thou/uL (4.8-10.8)
[2022-02-25 14:32] LABS: ALT (SGPT) 21 U/L (8-55); AST (SGOT) 17 U/L (5-34); Albumin 3.8 g/dL (3.5-5.0); Alkaline Phosphatase 103 U/L (40-110); Anion Gap 11 mmol/L (10-20); BUN (Urea Nitrogen) 8 mg/dL (7.0-18.7); Bilirubin, Total 0.4 mg/dL (0.2-1.2); Calc. Creatinine Clearance 0 mL/min (70-130); Calcium 8.6 mg/dL (7.8-10.44); Carbon Dioxide 25 mmol/L (22-29); Chloride 106 mmol/L (98-107); Globulin 2.2 g/dL (2.4-3.5); Glucose 98 mg/dL (70-105); Potassium 3.7 mmol/L (3.5-5.1); Sodium 138 mmol/L (136-145)
[2022-02-25 15:11] LABS: BHCG - Serum Negative (NEGATIVE); Pregs Control Background? CLEAR/WHITE (CLR/WHITE); Pregs Control Bar Appear? YES (CONTROL BAR)
[2022-02-25 16:24] LABS: SARS-CoV-2 NAA Rapid Test DETECTED (NotDetected)
[2022-02-25] MEDS ORDERED: Acetaminophen 500 MG TAB ONE (16:26)
[2022-02-25 16:51] LABS: Troponin I Less than 0.010 ng/mL (< 0.028)
== END 2022-02-25 16:51 | disposition home or self-care (01) ==
LOC: ERS 13:30
DX: U07.1 COVID-19 (principal); R07.89 Other chest pain; I10 Essential (primary) hypertension; E78.5 Hyperlipidemia, unspecified; E11.9 Type 2 diabetes mellitus without complications; E03.9 Hypothyroidism, unspecified; Z79.899 Other long term (current) drug therapy
CPT/HCPCS: 36415; 71045; 80053; 83880; 84484; 84703; 85025; 93005; U0002

== ENCOUNTER 2022-11-18 21:43 | Observation (INO) | payer MEDICARE, SELFPAY ==
[2022-11-19 01:10] VITALS: BMI 39.2
[2022-11-19] MEDS ORDERED: Ondansetron PF 4 MG/2 ML Vial IVP PRN (01:30)
[2022-11-19] MEDS ORDERED: Acetaminophen 325 MG TAB PO PRN (01:30)
[2022-11-19] MEDS ORDERED: Ondansetron ODT 4 MG TAB PO PRN (01:30)
[2022-11-19] MEDS ORDERED: Potassium Chloride 20 MEQ TAB PO SCH (01:30)
[2022-11-19] MEDS ORDERED: Senokot S 8.6-50 MG TAB PO PRN (01:30)
[2022-11-19] MEDS ORDERED: Zolpidem Tartrate 5 MG TAB PO PRN (01:54)
[2022-11-19] MEDS: Potassium Chloride 20 MEQ in Premix Bag 1 BAG IVPB SCH ×2 (02:11→04:45)
[2022-11-19 05:58] LABS: Anion Gap 9 mmol/L (10-20); BUN (Urea Nitrogen) 10 mg/dL (7.0-18.7); Calc. Creatinine Clearance 159 mL/min (70-130); Calcium 7.3 mg/dL (7.8-10.44); Carbon Dioxide 30 mmol/L (22-29); Chloride 103 mmol/L (98-107); Estimated GFR 107; Glucose 93 mg/dL (70-105); Potassium 3.2 mmol/L (3.5-5.1); Sodium 139 mmol/L (136-145)
[2022-11-19] MEDS ORDERED: Levothyroxine Sodium 88 MCG TAB PO SCH (06:00)
[2022-11-19] MEDS ORDERED: Losartan 25 MG TAB PO SCH (09:00)
[2022-11-19] MEDS ORDERED: Magnesium Chloride 64 MG TAB PO SCH (09:00)
[2022-11-19] MEDS ORDERED: Venlafaxine 75 MG TAB PO SCH (09:00)
[2022-11-19] MEDS ORDERED: Empagliflozin 10 MG TAB PO SCH (09:00)
[2022-11-19] MEDS ORDERED: Hydrochlorothiazide 25 MG TAB PO SCH (09:00)
[2022-11-19 12:06] VITALS: BP 146/86; TEMP 98.5
== END 2022-11-19 13:40 | disposition home or self-care (01) ==
LOC: 2SW 21:43
PROVIDERS: ADMIT Student in an Organized Health Care Education/Training Program; ATTEND Family Medicine
DX: R11.2 Nausea with vomiting, unspecified (principal); E87.6 Hypokalemia; E83.42 Hypomagnesemia; I10 Essential (primary) hypertension; Z20.822 Contact with and (suspected) exposure to COVID-19; E11.9 Type 2 diabetes mellitus without complications; F41.9 Anxiety disorder, unspecified; F32.A Depression, unspecified; K21.9 Gastro-esophageal reflux disease without esophagitis; G89.29 Other chronic pain; R10.9 Unspecified abdominal pain; E66.9 Obesity, unspecified; Z68.39 Body mass index [BMI] 39.0-39.9, adult; Z90.49 Acquired absence of other specified parts of digestive tract; Z88.1 Allergy status to other antibiotic agents; Z88.8 Allergy status to other drugs, medicaments and biological substances; Z91.041 Radiographic dye allergy status; Z79.84 Long term (current) use of oral hypoglycemic drugs; Z79.890 Hormone replacement therapy; Z79.899 Other long term (current) drug therapy
CPT/HCPCS: 36415; 80048; 96374; 96376; G0378; J3480; U0003; U0005